=== PATIENT | female | born 1940 | race African-American/Black ===

== ENCOUNTER 2017-08-13 09:06 | Inpatient (IN) | payer OTHER, MEDICARE ==
[~2017-08-13] VITALS: Ht 167.6 cm; Wt 73.2 kg
[2017-08-13 09:25] VITALS: BP 120/87; PULSE 99; RESP 19; TEMP 98.3; O2SAT 96
[2017-08-13] MEDS ORDERED: ALPR.25 PO (11:22)
[2017-08-13] MEDS ORDERED: ATOR80TA45 PO (11:22)
[2017-08-13] MEDS ORDERED: OXYC1TAB36 PO (11:22)
[2017-08-13] MEDS ORDERED: LISI-519 PO (11:22)
[2017-08-13] MEDS ORDERED: REGL10TA5 PO (11:23)
[2017-08-13] MEDS ORDERED: NAPR500T2 PO (11:23)
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
[2017-08-13 12:14] LABS: AUTOMATED NEUTROPHIL # 5.7 TH/MM3 (1.8-7.7); BASOPHIL # 0.1 TH/MM3 (0-0.2); BASOPHIL % 0.9 % (0.0-2.0); EOSINOPHIL # 0.1 TH/MM3 (0-0.4); EOSINOPHIL % 0.9 % (0.0-4.0); HEMATOCRIT 41.1 % (35.0-46.0); HEMOGLOBIN 13.8 GM/DL (11.6-15.3); LYMPH % 32.6 % (9.0-44.0); LYMPHOCYTE # 3.1 TH/MM3 (1.0-4.8); MEAN CELL VOLUME 88.5 FL (80.0-100.0); MEAN CORPUSCULAR HEMOGLOBIN 29.7 PG (27.0-34.0); MEAN CORPUSCULAR HGB CONC 33.6 % (32.0-36.0); MEAN PLATELET VOLUME 7.8 FL (7.0-11.0); MONO % 6.5 % (0.0-8.0); MONOCYTE # 0.6 TH/MM3 (0-0.9); NEUT % 59.1 % (16.0-70.0); PLATELET COUNT 258 TH/MM3 (150-450); RED BLOOD COUNT 4.64 MIL/MM3 (4.00-5.30); RED CELL DISTRIBUTION WIDTH 16.8 % (11.6-17.2); WHITE BLOOD COUNT 9.6 TH/MM3 (4.0-11.0)
[2017-08-13 12:18] LABS: BILIRUBIN, URINE NEG (NEG); BLOOD, URINE NEG (NEG); GLUCOSE,URINE NEG (NEG); HYALINE CAST, URINE 1 /lpf (RARE); KETONE, URINE NEG (NEG); NITRITE,URINE NEG (NEG); SQUAMOUS EPITHELIAL CELL URINE 1 /hpf (0-5); URINE COLOR YELLOW (YELLW/STRAW); URINE LEUKOCYTE ESTERASE SMALL (NEG)
[2017-08-13 12:26] LABS: ALBUMIN 4.2 GM/DL (3.4-5.0); ALT (GPT) 20 U/L (10-53); AST (GOT) 22 U/L (15-37); BLOOD UREA NITROGEN 11 MG/DL (7-18); CALCIUM 9.3 MG/DL (8.5-10.1); CHLORIDE 103 MEQ/L (98-107); CREATININE 0.83 MG/DL (0.50-1.00); GLOMERULAR FILTRATION RATE 81 ML/MIN (>89); GLUCOSE,RANDOM 106 MG/DL (74-106); SODIUM (NA) 134 MEQ/L (136-145)
[2017-08-13 12:40] LABS: ALKALINE PHOSPHATASE 87 U/L (45-117); TOTAL BILIRUBIN ADULT 0.5 MG/DL (0.2-1.0); TOTAL PROTEIN 8.7 GM/DL (6.4-8.2)
[2017-08-13 13:27] VITALS: BP 149/70; PULSE 98; RESP 16; O2SAT 98
[2017-08-13] MEDS ORDERED: IBUPROFEN 800 MG TAB PO ONE (16:30)
[2017-08-13] MEDS ORDERED: AMBI5TAB PO (17:16)
[2017-08-13] MEDS ORDERED: TRAM50TA PO (17:16)
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
[2017-08-13] MEDS ORDERED: MAGNESIUM HYDROXIDE SUSP 30 ML CUP PO PRN (17:45)
[2017-08-13] MEDS ORDERED: ACETAMINOPHEN 325 MG TAB PO PRN (17:45)
[2017-08-13] MEDS ORDERED: ALUMINUM/MAGNESIUM/SIMETH 30 ML CUP PO PRN (17:45)
[2017-08-13 18:57] VITALS: BP 126/61; PULSE 95; RESP 18; TEMP 99; O2SAT 99
[2017-08-13] MEDS ORDERED: oxyCODONE/ACETAMINOPHEN 10 MG/325 MG TAB PO PRN (20:30)
[2017-08-13] MEDS: ATORVASTATIN 80 MG TAB PO SCH (20:38)
[2017-08-13] MEDS: NAPROXEN 500 MG TAB PO SCH (20:38)
[2017-08-14 06:00] VITALS: BP 120/54; PULSE 89; RESP 18; TEMP 98.8; O2SAT 100
[2017-08-14] MEDS: NAPROXEN 500 MG TAB PO SCH (09:16)
[2017-08-14] MEDS: LISINOPRIL 5 MG TAB PO SCH (09:17)
[2017-08-14 09:19] VITALS: BP 125/58; PULSE 92
[2017-08-14 11:49] LABS: BICARBONATE 25.7 MEQ/L (21.0-32.0); BLOOD UREA NITROGEN 11 MG/DL (7-18); CHLORIDE 102 MEQ/L (98-107); CREATININE 0.77 MG/DL (0.50-1.00); GLOMERULAR FILTRATION RATE 88 ML/MIN (>89); GLUCOSE,RANDOM 81 MG/DL (74-106); SODIUM (NA) 136 MEQ/L (136-145)
[2017-08-14 11:50] LABS: CHOLESTEROL 131 MG/DL (120-200)
[2017-08-14 12:16] LABS: CHOLESTEROL/ HDL RATIO 2.39 RATIO; HDL CHOLESTEROL 54.7 MG/DL (40.0-60.0); LDL CHOLESTEROL 61 MG/DL (0-99); TRIGLYCERIDES 75 MG/DL (42-150)
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
[2017-08-14] MEDS ORDERED: hydrOXYzine HCL 50 MG TAB PO PRN (14:45)
--- NOTE | 2017-08-14 14:54 | HHI.HP ---
Provisional Diagnosis Admission Date Aug 13, 2017 at 17:42 [place]. Brief psychotic disorder F 23 Certification of Person's Competence To Provide Express and Informed Consent I have personally examined Thelma Parks , a person being served at [facility] on, Aug 14, 2017 14:41. Express and informed consent means consent voluntarily given in writing, by a competent person, after sufficient explanation and disclosure of the subject matter involved to enable the person to make a knowing and willful decision without any element of force, fraud, deceit, duress, or other form of constraint or coercion. This person is 18 years of age or older, is not now known to be incompetent to consent to treatment with a guardian advocate, and does not have a health care surrogate or proxy currently making medical treatment decisions. I have found this person to be one of the following: [] Competent to provide express and informed consent, as defined above, for voluntary admission to this facility and is competent to provide express and informed consent for treatment. He/she has the consistent capacity to make well reasoned, willful, and knowing decisions concerning his or her medical or mental health treatment. The person fully and consistently understands the purpose of the admission for examination/placement and is fully capable of personally exercising all rights assured under [place] [] Incompetent to provide express and informed consent to voluntary admission, and this is incompetent to provide express and informed consent to treatment. The person must be transferred to involuntary status and a petition for a guardian advocate filed with the Circuit Court. [xxx] Refusing to provide express and informed consent to voluntary admission but is competent to provide express and informed consent for treatment. The person must be discharged or transferred to involuntary status. Form shall be completed within 24 hours of a person's arrival at the receiving facility and filed in the clinical record of each person: 1. Admitted on a voluntary basis 2. Permitted to provide express and informed consent to his/her own treatment 3. Allowed to transfer from involuntary to voluntary status 4. Prior to permitting a person to consent to his or her own treatment after having been previously found incompetent to consent to treatment. History of Present Illness Capacity: Lacks Capacity (patient less capacity sign for admission, patient has capacity to sign for medication) HPI Patient is a 70 sexual definite female initially comes here with her sister on a voluntary basis complaining of ringing in her ears, with increased delusions over the past 1-2 months of multiple people coming into her house through the wray into the crevices having some type of a silver Henrietta the abdomen they can be Julius they float away. But they began mumbling and talking at her threatening her frightening her. When she tried to take them out of the house they floated her bedroom. She describes these things too nightmares though she hasn't during the day also. Of interest patient stated she was on Cymbalta about a year ago and had similar "nightmares" will allow that medication. It appears patient has been prescribed opiates and benzodiazepines that her sister states she at times misuses. Patient has making some mild drug-seeking comments related to that. In any event she denies prior psychiatric contact hospitalizations a psychotropic medications. He does denies suicidality at the present time. She is of a history of using alcohol and marijuana in the past. She said she was born in [place] and raised in [place]. Delirious here now with her sister. Patient seen screened in the ED urine toxicology negative. Patient was seen with nurse novak. At this time I feel patient does not have capacity to make appropriate decisions concerning her hospitalization. Thus I will start petition for involuntary placement I will do first opinion petition supporting Levy act request second opinion. Peripheral chance sign for her medications. Will have hospitalist also consult with us. And because the seems to be a late onset with psychotic features I'll have neurology consult with us. Patient is well oriented 3 along with episodes of diffuse confusion Review of Systems ROS Limitations: Altered Mental Status Constitutional: DENIES: Diaphoretic episodes, Fatigue, Fever, Weight gain, Weight loss, Chills, Dizziness, Change in appetite, Night Sweats Endocrine: DENIES: Abnorml menstrual pattern, Heat/cold intolerance, Polydipsia , Polyuria, Polyphagia Eyes: DENIES: Blurred vision, Diplopia, Eye inflammation, Eye pain, Vision loss , Photosensitivity, Double Vision Ears, nose, mouth, throat: DENIES: Tinnitus, Hearing loss, Vertigo, Nasal discharge, Oral lesions, Throat pain, Hoarseness, Ear Pain, Running Nose, Epistaxis, Sinus Pain, Toothache, Odynophagia Respiratory: DENIES: Apneas, Cough, Snoring, Wheezing, Hemoptysis, Sputum production, Shortness of breath Cardiovascular: DENIES: Chest pain, Palpitations, Syncope, Dyspnea on Exertion , PND, Lower Extremity Edema, Orthopnea, Claudication Gastrointestinal: DENIES: Abdominal pain, Black stools, Bloody stools, Constipation, Diarrhea, Nausea, Vomiting, Difficulty Swallowing, Anorexia Genitourinary: DENIES: Abnormal vaginal bleeding, Dysmenorrhea, Dyspareunia, Sexual dysfunction, Urinary frequency, Urinary incontinence, Urgency, Hematuria , Dysuria, Nocturia, Vaginal discharge Musculoskeletal: COMPLAINS OF: Joint pain, Muscle aches, Back pain Integumentary: DENIES: Abnormal pigmentation, Pruritus, Rash, Nail changes, Breast masses, Breast skin changes, Nipple discharge Hematologic/lymphatic: DENIES: Bruising, Lymphadenopathy Immunologic/allergic: DENIES: Eczema, Urticaria Neurologic: COMPLAINS OF: Headache Psychiatric: COMPLAINS OF: Hallucinations, Delusions Past Psych History Psychological trauma history Patient denies Violence risk - others (6 mos) Low Violence risk - self (6 mos) Low to moderate Substance Abuse History Drugs/Alcohol past 12 months Patient denies any recently Past Family Social History Coded Allergies: cephalexin (Verified Allergy, Severe, DIARRHEA, 08/13/17) shellfish derived (Verified Allergy, Intermediate, Swelling, 08/13/17) "GLANDS GET SWOLLEN" aspirin (Verified Allergy, Unknown, 08/13/17) Reported Medications Zolpidem (Ambien) 5 Mg Tab, 5 MG PO HS Y for INSOMNIA, TAB 0 Refills 08/13/17 Tramadol (Tramadol) 50 Mg Tab, 50 MG PO Q4H Y for PAIN, TAB 0 Refills 08/13/17 Naproxen (Naproxen) 500 Mg Tab, 500 MG PO BID, #60 TAB 0 Refills 08/13/17 Metoclopramide (Reglan) 10 Mg Tab, 10 MG PO HS, #120 TAB 0 Refills 08/13/17 Alprazolam (Xanax) 0.25 Mg Tab, 0.25 MG PO Q6H Y for ANXIETY, TAB 0 Refills 08/13/17 Atorvastatin (Atorvastatin) 80 Mg Tab, 80 MG PO HS for Cholesterol Management, # 30 TAB 0 Refills 08/13/17 Lisinopril (Lisinopril) 5 Mg Tab, 5 MG PO DAILY for Blood Pressure Management, # 30 TAB 0 Refills 3/29/18 Discontinued Reported Medications Oxycodone-Acetaminophen (Oxycodone-Acetaminophen) 10-325 mg Tab, 1 TAB PO Q6H Y for PAIN, TAB 0 Refills 08/13/17 Current Medications Medications (Trade) Dose Ordered Sig/Felton Route Start Time Stop Time Status Last Admin (Tylenol) 650 mg Q4H PRN PO 08/13/17 17:45 (Milk Of Magnesia Liq) 30 ml DAILY PRN PO 08/13/17 17:45 (Mag-Al Plus Susp Liq) 30 ml Q6H PRN PO 08/13/17 17:45 (Lipitor) 80 mg HS PO 08/13/17 21:00 08/13/17 20:38 (Prinivil) 5 mg DAILY PO 08/14/17 09:00 08/14/17 09:17 (Naprosyn) 500 mg BID PO 08/13/17 21:00 08/14/17 09:16 (Percocet 10-325 Mg) 1 tab Q6H PRN PO 08/13/17 20:30 08/14/17 00:36 (Reglan) 10 mg HS PO 08/14/17 21:00 Family Psych History Unknown at this time Social History Patient lives with sister Patient's Strengths (min. 2) Patient verbal labile axis health care Physical Exam Patient medically cleared ED exam reviewed and agreed with. Patient sitting in a chair in day room, she is in no acute distress, she is in no respiratory distress, no complaints of abdominal pain. Patient moving all 4 extremities while using a walker vague complaints of diffuse uncomfortableness Vital Signs Vital Signs Date Time Temp Pulse Resp B/P (MAP) Pulse Ox O2 Delivery O2 Flow Rate FiO2 08/14/17 09:19 92 125/58 (80) 08/14/17 06:00 98.8 18 100 08/13/17 13:27 Room Air Lab Results Test 08/14/17 10:35 Blood Urea Nitrogen 11 MG/DL Creatinine 0.77 MG/DL Random Glucose 81 MG/DL Calcium Level 9.0 MG/DL Sodium Level 136 MEQ/L Potassium Level 3.7 MEQ/L Chloride Level 102 MEQ/L Carbon Dioxide Level 25.7 MEQ/L Anion Gap 8 MEQ/L Estimat Glomerular Filtration Rate 88 ML/MIN Triglycerides Level 75 MG/DL Cholesterol Level 131 MG/DL LDL Cholesterol 61 MG/DL HDL Cholesterol 54.7 MG/DL Cholesterol/HDL Ratio 2.39 RATIO Vitamin B12 Level GREATER THAN 2000 PG/ML 25-Hydroxy Vitamin D Total 26.4 ng/ML Mental Status Examination Appearance: Appropriate (Nicely dressed with appropriate hygiene and grooming.) Consciousness: Alert Orientation: Person, Place, Date/Time Motor Activity: Other (Uses a cane) Speech: Unremarkable, Hesitant Language: Adequate Fund of Knowledge: Adequate Attention and Concentration: Other (poor) Memory: Impaired Mood: Other (euthymic to somewhat irritable) Affect: Other (slight decreased range and intensity) Thought Process & Associations: Intact, Loose associations Thought Content: Bizarre thinking, Hallucinations (She sees multiple people coming in and out of her house.) Hallucination Type: Auditory (She hears different people talking at night.), Visual Delusion Type: Paranoid Suicidal Ideation: No Suicidal Plan: No Suicidal Intention: No Homicidal Ideation: No Homicidal Plan: No Homicidal Intention: No Insight: Poor Judgment: Poor Assessment & Plan Problem List: (1) BRIEF PSYCHOTIC DISORDER ICD Codes: F23 - BRIEF PSYCHOTIC DISORDER Assessment & Plan Estimated LOS: days patient paranoid psychotic and delusional, at this time feel she does not have capacity to sign for her admission on a voluntary basis does show do first opinion petition supporting Levy act. Request second opinion. I feel she can sign for medications. The hospitalist also consult will also have neurology also consult will Discharge Planning To be determined possibly back home with sister Request HC Surrog/Guard Advoc?: No Wero Simons MD Aug 14, 2017 14:54
[2017-08-14 16:00] VITALS: BP 122/63; PULSE 88; RESP 18; TEMP 98.5; O2SAT 100
[2017-08-14 16:06] LABS: HEMOGLOBIN A1C 5.7 % (4.3-6.0)
[2017-08-14] MEDS ORDERED: cloNIDine HCL 0.1 MG TAB PO PRN (16:45)
[2017-08-14] MEDS: traMADol HCL 50 MG TAB PO PRN (17:12)
[2017-08-14] MEDS: risperiDONE 0.5 MG TAB PO SCH (20:56)
[2017-08-14] MEDS ORDERED: METOCLOPRAMIDE HCL 10 MG TAB PO SCH (21:00)
[2017-08-14] MEDS: ATORVASTATIN 80 MG TAB PO SCH (21:02)
[2017-08-14] MEDS ORDERED: BACLOFEN 10 MG TAB PO SCH (22:00)
[2017-08-15 05:48] VITALS: BP 153/74; PULSE 95; RESP 16; TEMP 98.1; O2SAT 100
[2017-08-15] MEDS: LISINOPRIL 5 MG TAB PO SCH (08:39)
[2017-08-15] MEDS: traMADol HCL 50 MG TAB PO PRN ×2 (08:40→17:53)
[2017-08-15] MEDS: risperiDONE 0.5 MG TAB PO SCH ×2 (08:41→21:00)
--- NOTE | 2017-08-15 12:25 | HHI.PYPN ---
Subjective Remarks This is a request for second opinion. Patient was seen and case was discussed with nursing. Admission note was reviewed and I agree with the history. Patient remains confused and disorganized. She is not sure when she is dreaming or whether was happening is real. She admits to opiates and Xanax at home psychoeducation was done concerning those medications and altered mental status. Patient denies depressed mood. Denies suicidal or homicidal ideation. No delusions elicited. Patient is not discussing anything coming out of the wray. Mental Status Examination Appearance: Appropriate (Nicely dressed with appropriate hygiene and grooming.) Consciousness: Alert Orientation: Person, Place, Date/Time Motor Activity: Other (Uses a cane) Speech: Unremarkable, Hesitant Language: Adequate Fund of Knowledge: Adequate Attention and Concentration: Other (poor) Memory: Impaired Mood: Other (euthymic to somewhat irritable) Affect: Other (slight decreased range and intensity) Thought Process & Associations: Intact, Disorganized Thought Content: Bizarre thinking, Hallucinations (She sees multiple people coming in and out of her house.) Hallucination Type: Auditory (denies today) Delusion Type: Paranoid Suicidal Ideation: No Suicidal Plan: No Suicidal Intention: No Homicidal Ideation: No Homicidal Plan: No Homicidal Intention: No Insight: Poor Judgment: Poor Results Vitals/IOs Vital Signs Date Time Temp Pulse Resp B/P (MAP) Pulse Ox O2 Delivery O2 Flow Rate FiO2 08/15/17 05:48 98.1 95 16 153/74 (100) 100 08/13/17 13:27 Room Air Intake and Output 08/15/17 08/15/17 08/16/17 08:00 16:00 00:00 Intake Total 0 ml 120 ml Balance 0 ml 120 ml Assessment & Plan Problem List: (1) BRIEF PSYCHOTIC DISORDER ICD Codes: F23 - BRIEF PSYCHOTIC DISORDER Assessment & Plan I agree with first opinion to continue petition. Criteria include acute psychosis. We will order an MRI Justification for Cont. Inpt. Patient would decompensate in a less restrictive setting Request HC Surrog/Guard Advoc?: Rodrigo Hermosillo DO Aug 15, 2017 12:25
--- NOTE | 2017-08-15 14:43 | HHI.PR ---
Subjective Remarks Follow-up visit HTN, HLD, narcotic use. Patient seen and examined today. States she is very sleepy and has been sleeping all day. Patient reports she is feeling withdrawal symptoms from not having her regular Percocets. Reports headaches, dizziness, increased anxiety, nausea, diarrhea. Denies chest pain, palpitations, fevers, chills, shortness of breath or dyspnea, vomiting. Objective Vitals Vital Signs Date Time Temp Pulse Resp B/P (MAP) Pulse Ox O2 Delivery O2 Flow Rate FiO2 08/15/17 05:48 98.1 95 16 153/74 (100) 100 08/14/17 16:00 98.5 88 18 122/63 (82) 100 I/O 08/14/17 08/14/17 08/14/17 08/15/17 08/15/17 08/15/17 07:00 15:00 23:00 07:00 15:00 23:00 Intake Total 480 ml 0 ml 360 ml Balance 480 ml 0 ml 360 ml Intake Oral 480 ml 0 ml 360 ml # Voids 1 Result Diagram: 08/13/17 1134 08/14/17 1035 Objective Remarks GENERAL: This is a well-nourished, well-developed patient, in no apparent distress. SKIN: Warm and dry. HEENT: Normocephalic. Pupils equal round and reactive. Nose without bleeding. Airway patent. NECK: Trachea midline. No JVD. Supple. CARDIOVASCULAR: Regular rate and rhythm without murmurs, gallops, or rubs. RESPIRATORY: Clear to auscultation. Breath sounds equal bilaterally. No wheezes , rales, or rhonchi. GASTROINTESTINAL: Abdomen soft, non-tender, nondistended. Bowel Sounds normoactive x4. MUSCULOSKELETAL: Extremities without clubbing, cyanosis, or edema. NEUROLOGICAL: Awake and alert. Oriented to month, place, person. Moves all extremities. Normal speech. A/P Problem List: (1) Encephalopathy ICD Code: G93.40 - Encephalopathy, unspecified Assessment and Plan Patient is a 76-year-old -[place] female with primary medical history of hypertension, hyperlipidemia, anxiety cervical and breast cancer, chronic pain who came into the hospital brought in by sister for bizarre behavior including hallucinations. She is now admitted to inpatient psychiatry unit for further evaluation consulted for chronic pain history. Confusion Hallucinations -Managed by psychiatry team -Brain MRI ordered by primary team Encephalopathy, toxic vs metabolic Chronic Narcotics and benzodiazepine use -Confusion may be drug-induced patient has been on opioid narcotics. As per nursing report she was given Percocet last night, and have more confusion -Hold off on giving opioid narcotics including benzodiazepines. -May use clonidine patch for possible withdrawal Chronic Pain, chronic narcotic use Fibromyalgia Stenosis lumbar and cervical Narcotic use, withdrawal -On tramadol as needed baclofen as needed -May also start NSAID use -Avoid withdrawals from narcotic use will start clonidine patch HTN HLD -Continue home medication atorvastatin 80 mg, lisinopril 5 mg daily -Monitor BP trend DVT prop ambulatory Discussed patient, nurse Mishel Carbone Aug 15, 2017 14:43
[2017-08-15] MEDS ORDERED: cloNIDine HCL 0.1 MG/24 HR PATCH T-DERMAL SCH (15:00)
--- NOTE | 2017-08-15 15:50 | RADRPT ---
EXAM DATE/TIME: 08/15/2017 14:39 [facility] COMPARISON: No previous studies available for comparison. INDICATIONS : Confusion. Cephalgia. MEDICAL HISTORY : Carcinoma, breast. SURGICAL HISTORY : Hysterectomy. ENCOUNTER: Initial ACUITY: 1 day PAIN SCORE: 4/10 LOCATION: cranial TECHNIQUE: Multiplanar, multisequence MRI of the brain was performed without contrast. FINDINGS: CEREBRUM: The ventricles are normal for age. No evidence of midline shift, mass lesion, hemorrhage or acute in farction. No extraaxial fluid collections are seen. The pituitary gland and suprasellar cistern are normal in configuration. WHITE MATTER: No significant signal abnormalities are seen in the white matter. POSTERIOR FOSSA: The cerebellum and brainstem are intact. The 4th ventricle is midline. The cerebellopontine angle is unremarkable. The cerebellar tonsils are normal in position. DIFFUSION IMAGING: No focal areas of restricted diffusion are seen. No evidence of acute infarction. EXTRACRANIAL: The visualized portions of the orbits and paranasal sinuses are unremarkable. CONCLUSION: Normal examination for a patient of this age. Giovanni Don MD on August 15, 2017 at 15:44 Board Certified Radiologist. This report was verified electronically.
[2017-08-15 17:29] VITALS: BP 136/63; PULSE 75; RESP 16; TEMP 98.5; O2SAT 98
[2017-08-15] MEDS: BACLOFEN 10 MG TAB PO PRN (17:53)
[2017-08-15] MEDS: ATORVASTATIN 80 MG TAB PO SCH (20:55)
[2017-08-16] MEDS: BACLOFEN 10 MG TAB PO PRN ×3 (02:55→19:40)
[2017-08-16] MEDS: traMADol HCL 50 MG TAB PO PRN ×3 (02:56→19:39)
[2017-08-16 05:39] VITALS: BP 127/58; PULSE 84; RESP 16; TEMP 98.3; O2SAT 100
[2017-08-16] MEDS: LISINOPRIL 5 MG TAB PO SCH (08:31)
[2017-08-16] MEDS: risperiDONE 0.5 MG TAB PO SCH ×2 (08:32→08:39)
--- NOTE | 2017-08-16 12:34 | HHI.PYPN ---
Subjective Remarks Patient was seen and case discussed with nursing. Patient has gained better insight into her symptoms and says that before admission she did have visual hallucinations of people in her house and animals. She denies having these here in the hospital. We discussed how this could be due to delirium secondary to her benzodiazepines and opiates. Is nice and pleasant on the unit. Meeting with family elated today. Chief complaint today is poor sleep and she gives consent for trazodone Mental Status Examination Appearance: Appropriate (Nicely dressed with appropriate hygiene and grooming.) Consciousness: Alert Orientation: Person, Place, Date/Time Motor Activity: Other (Uses a cane) Speech: Unremarkable, Hesitant Language: Adequate Fund of Knowledge: Adequate Attention and Concentration: Other (poor) Memory: Impaired Mood: Other (euthymic to somewhat irritable) Affect: Other (slight decreased range and intensity) Thought Process & Associations: Intact, Disorganized Thought Content: Bizarre thinking, Hallucinations (She sees multiple people coming in and out of her house.) Hallucination Type: Auditory (denies today) Delusion Type: Paranoid Suicidal Ideation: No Suicidal Plan: No Suicidal Intention: No Homicidal Ideation: No Homicidal Plan: No Homicidal Intention: No Insight: Poor Judgment: Poor Results Vitals/IOs Vital Signs Date Time Temp Pulse Resp B/P (MAP) Pulse Ox O2 Delivery O2 Flow Rate FiO2 08/16/17 06:40 18 08/16/17 05:39 98.3 84 127/58 (81) 100 08/13/17 13:27 Room Air Intake and Output 08/16/17 08/16/17 08/17/17 08:00 16:00 00:00 Intake Total 0 ml Balance 0 ml Assessment & Plan Problem List: (1) BRIEF PSYCHOTIC DISORDER ICD Codes: F23 - BRIEF PSYCHOTIC DISORDER Assessment & Plan Trazodone 50 mg by mouth daily at bedtime Justification for Cont. Inpt. Patient will decompensate in a less restrictive setting Request HC Surrog/Guard Advoc?: No Rodrigo Abdi DO Aug 16, 2017 12:34
[2017-08-16] MEDS ORDERED: PILL SPLITTER OTHER PRN (14:30)
--- NOTE | 2017-08-16 14:30 | HHI.PR ---
Subjective Remarks Follow-up visit HTN, HLD, narcotic use. Patient seen and examined today. States she is doing okay but she does not know what is going to happen to her. Patient states I think I am going to be coping when I get out of here. Denies pain and discomfort. Denies SOB/ dyspnea. Denies chest pain, palpitations, headaches, dizziness. Denies fevers, chills, n/v/d. Denies dysuria. Objective Vitals Vital Signs Date Time Temp Pulse Resp B/P (MAP) Pulse Ox O2 Delivery O2 Flow Rate FiO2 08/16/17 06:40 18 08/16/17 05:39 98.3 84 16 127/58 (81) 100 08/15/17 17:29 98.5 75 16 136/63 (87) 98 I/O 08/15/17 08/15/17 08/15/17 08/16/17 08/16/17 08/16/17 07:00 15:00 23:00 07:00 15:00 23:00 Intake Total 0 ml 840 ml 0 ml Balance 0 ml 840 ml 0 ml Intake Oral 0 ml 840 ml 0 ml # Voids 1 3 2 Result Diagram: 08/13/17 1134 08/14/17 1035 Objective Remarks GENERAL: This is a well-nourished, well-developed patient, in no apparent distress. SKIN: Warm and dry. HEENT: Normocephalic. Pupils equal round and reactive. Nose without bleeding. Airway patent. NECK: Trachea midline. No JVD. Supple. CARDIOVASCULAR: Regular rate and rhythm without murmurs, gallops, or rubs. RESPIRATORY: Clear to auscultation. Breath sounds equal bilaterally. No wheezes , rales, or rhonchi. GASTROINTESTINAL: Abdomen soft, non-tender, nondistended. Bowel Sounds normoactive x4. MUSCULOSKELETAL: Extremities without clubbing, cyanosis, or edema. NEUROLOGICAL: Awake and alert. Oriented to month, place, person. Periods of confusion. Moves all extremities. Normal speech. A/P Problem List: (1) Encephalopathy ICD Code: G93.40 - Encephalopathy, unspecified Assessment and Plan Patient is a 76-year-old -[place] female with primary medical history of hypertension, hyperlipidemia, anxiety cervical and breast cancer, chronic pain who came into the hospital brought in by sister for bizarre behavior including hallucinations. She is now admitted to inpatient psychiatry unit for further evaluation consulted for chronic pain history. Confusion Hallucinations -Managed by psychiatry team -Brain MRI ordered by primary team Encephalopathy, toxic vs metabolic Chronic Narcotics and benzodiazepine use -Confusion may be drug-induced patient has been on opioid narcotics. As per nursing report she was given Percocet and have more confusion -Hold off on giving opioid narcotics including benzodiazepines. -Clonidine patch for possible withdrawal Chronic Pain, chronic narcotic use Fibromyalgia Stenosis lumbar and cervical Narcotic use, withdrawal -On tramadol as needed baclofen as needed -May also start NSAID use -Avoid withdrawals from narcotic use will start clonidine patch HTN HLD -Continue home medication atorvastatin 80 mg, lisinopril 5 mg daily -Monitor BP trend -Improving DVT prop ambulatory Stable from Hospitalist standpoint. We will sign off. Reconsult as needed. Discussed patient, nurse Mishel Carbone Aug 16, 2017 14:29
[2017-08-16 18:44] VITALS: BP 112/56; PULSE 80; RESP 16; TEMP 98.1; O2SAT 100
--- NOTE | 2017-08-16 19:10 | MB ---
cc: Agustin More MD, PhD DATE: 08/16/2017 REASON FOR CONSULTATION: Hallucinations. HISTORY OF PRESENT ILLNESS: The patient is a very pleasant 76-year-old female who began having delusions and hallucinations about a week or 2 ago, she states. She thought people were coming into her house through the wray, etc. She states that she was using Percocet routinely and Xanax. She was taking Percocet for low back pain and stopped this, feels that the hallucinations came on following cessation of the Percocet. She feels they are improving. There is no prior psychiatric history. She denies headaches. CURRENT MEDICATIONS: Remeron 7.5 mg daily, clonidine patch, baclofen 10 mg as needed for spasms, risperidone 0.5 mg b.i.d., clonidine p.r.n., Atarax 50 mg p.r.n. anxiety, tramadol p.r.n., lisinopril 5 mg daily, Lipitor 80 mg daily, Tylenol p.r.n. NEUROLOGIC EXAMINATION: VITAL SIGNS: Her blood pressure is 112/56, pulse is 80, respiratory rate is 16, temperature 98 degrees. HIGHER CORTICAL FUNCTION: Alert, oriented x 3. Recalls 2/3 objects in 3 minutes. Remote memory is normal. Calculation is normal. Naming ability is within normal limits. Cranial nerves 2-12 are normal. MOTOR: 5/5 strength of all groups of both upper and lower extremities. There is no drift. Romberg is grossly within normal limits. Reflexes are symmetric. DIAGNOSTIC DATA: MRI of the brain is within normal limits. LABORATORY DATA: White count 9600, hemoglobin 13.8, hematocrit 41%, platelet count 258,000. Sodium is 134, potassium is 4, chloride 103, CO2 is 22, BUN is 11, creatinine 0.83, GFR is 81, glucose 106, AST 22, ALT is 20. B12 greater than 2000. Tox screen negative. Urinalysis: The pH is 5, specific gravity 1.012. IMPRESSION: Probable encephalopathy, possibly related to withdrawal from pain medications. Recommend further evaluation with additional labs including sed rate, ANDRES, urine porphyrin screen, rule out porphyria. Also obtain EEG. Agustin More MD, PhD PR[facility]/SB , 06:54 PM , 07:09 PM
[2017-08-16] MEDS ORDERED: MIRTAZAPINE 15 MG TAB PO SCH (21:00)
[2017-08-16] MEDS ORDERED: traZODone HCL 50 MG TAB PO SCH (21:00)
[2017-08-16] MEDS: ATORVASTATIN 80 MG TAB PO SCH (21:07)
[2017-08-16 23:21] VITALS: RESP 16
[2017-08-17] MEDS: risperiDONE 0.5 MG TAB PO SCH (09:00)
[2017-08-17] MEDS: LISINOPRIL 5 MG TAB PO SCH (09:00)
[2017-08-17] MEDS: traMADol HCL 50 MG TAB PO PRN (09:04)
[2017-08-17] MEDS: BACLOFEN 10 MG TAB PO PRN (09:04)
[2017-08-17] MEDS ORDERED: ATOR80TA45 PO (12:56)
[2017-08-17] MEDS ORDERED: RISP0.5T25 PO (12:56)
[2017-08-17] MEDS ORDERED: CLON.1T T-DERMAL (12:56)
[2017-08-17] MEDS ORDERED: LISI-519 PO (12:56)
[2017-08-17] MEDS ORDERED: BACL10TA PO (12:56)
[2017-08-17] MEDS ORDERED: TRAM50TA PO (12:56)
[2017-08-17] MEDS ORDERED: MIRTA15 PO (12:56)
--- NOTE | 2017-08-17 13:02 | HHI.DS ---
Psychiatry Discharge Summary Inpatient Psychiatric care?: Yes Advance Directive: No Reason Not Provided: Due to Patient Condition Mental Health AdvanceDirective: No Health Care Proxy: No Admission Admission Date Aug 13, 2017 at 17:42 Admission Diagnosis: (1) BRIEF PSYCHOTIC DISORDER ICD Code: F23 - BRIEF PSYCHOTIC DISORDER Brief History Patient is a 70 sexual definite female initially comes here with her sister on a voluntary basis complaining of ringing in her ears, with increased delusions over the past 1-2 months of multiple people coming into her house through the wray into the crevices having some type of a silver [place] the abdomen they can be Julius they float away. But they began mumbling and talking at her threatening her frightening her. When she tried to take them out of the house they floated her bedroom. She describes these things too nightmares though she hasn't during the day also. Of interest patient stated she was on Cymbalta about a year ago and had similar "nightmares" will allow that medication. It appears patient has been prescribed opiates and benzodiazepines that her sister states she at times misuses. Patient has making some mild drug-seeking comments related to that. In any event she denies prior psychiatric contact hospitalizations a psychotropic medications. He does denies suicidality at the present time. She is of a history of using alcohol and marijuana in the past. She said she was born in [place] and raised in [place]. Delirious here now with her sister. Patient seen screened in the ED urine toxicology negative. Patient was seen with nurse novak. At this time I feel patient does not have capacity to make appropriate decisions concerning her hospitalization. Thus I will start petition for involuntary placement I will do first opinion petition supporting Levy act request second opinion. Shailesh servin sign for her medications. Will have hospitalist also consult with us. And because the seems to be a late onset with psychotic features I'll have neurology consult with us. Patient is well oriented 3 along with episodes of diffuse confusion Tobacco Use In Past 30 Days: 5 or More Cigarettes/Day Alcohol Use: Never Hospital Course Patient's hospital course was uneventful, she showed no behavioral problems, was active in the environment and on the unit. She is been compliant with her medications. She now states that the thought she had about people coming into her house was her "imagination" she showing some good reality testing she denies suicidality homicidality voices or visions. She wishes to go to her home today. At this time patient no longer meets Levy act criteria will allow the patient was discharged herself with Rx 1 month follow-up [facility] Results Blood Pressure 112 / 56 Vital Signs Date Time Temp Pulse Resp B/P (MAP) Pulse Ox O2 Delivery O2 Flow Rate FiO2 08/16/17 23:21 16 08/16/17 18:44 98.1 80 112/56 (74) 100 08/13/17 13:27 Room Air Laboratory Tests Test 08/16/17 21:17 08/17/17 08:35 Laboratory Results Test 08/14/17 10:35 Cholesterol Level 131 MG/DL (120-200) HDL Cholesterol 54.7 MG/DL (40.0-60.0) Hemoglobin A1c 5.7 % (4.3-6.0) LDL Cholesterol 61 MG/DL (0-99) Triglycerides Level 75 MG/DL (42-150) Summary of Procedures None done Imaging Last Impressions Brain MRI 08/15/17 0000 Signed Impressions: Service Date/Time: Tuesday, August 15, 2017 14:39 - CONCLUSION: Normal examination for a patient of this age. Giovanni Don MD Pending results at discharge: No Medications # of Antipsychotic meds at D/C: 1 Approp Antipsych med options 1 - Minimum of three failed multiple trials of monotherapy. 2 - Documented plan to taper to monotherapy due to previous use of multiple meds OR cross-taper in progress at D/C. 3 - Documentation of augmentation of Clozapine. 4 - Justification other than those listed in allowable values 1-3, document here : Discharge Discharge Date: Aug 17, 2017 Discharge Diagnosis: (1) BRIEF PSYCHOTIC DISORDER Diagnosis: Principal ICD Code: F23 - BRIEF PSYCHOTIC DISORDER Pt Condition on Discharge: Stable Discharge Disposition: Discharge Home Discharge Instructions Diet Instructions: As Tolerated, No Restrictions Activities you can perform: Regular-No Restrictions Scheduled Appointment: [facility] Discharge Time > 30 minutes Mental Status Examination Appearance: Appropriate (Nicely dressed with appropriate hygiene and grooming.) Consciousness: Alert Orientation: Person, Place, Date/Time Motor Activity: Other (Uses a cane) Speech: Unremarkable, Hesitant Language: Adequate Fund of Knowledge: Adequate Attention and Concentration: Other (poor) Memory: Impaired Mood: Other (euthymic to somewhat irritable) Affect: Other (slight decreased range and intensity) Thought Process & Associations: Intact, Disorganized Thought Content: Bizarre thinking, Hallucinations (She sees multiple people coming in and out of her house.) Hallucination Type: Auditory (denies today) Delusion Type: Paranoid Suicidal Ideation: No Suicidal Plan: No Suicidal Intention: No Homicidal Ideation: No Homicidal Plan: No Homicidal Intention: No Insight: Poor Judgment: Poor Discharge/Advance Care Plan Health Problems: (1) BRIEF PSYCHOTIC DISORDER Goals to promote your health * To prevent worsening of your condition and complications * To maintain your health at the optimal level Directions to meet your goals Take your medications as prescribed Follow your dietary instruction Follow activity as directed Keep your appointments as scheduled Take your immunizations and boosters as scheduled If your symptoms worsen call your PCP, if no PCP go to Urgent Care Center or Emergency Room For 08/12 questions related to your inpatient stay or results of tests pending at discharge, please contact Dr. Wero Simons at Smoking is Dangerous to Your Health. Avoid second hand smoking Wero Simons MD Aug 17, 2017 13:02
[2017-08-22] MEDS ORDERED: REMOVE OLD CATAPRES (CLONIDINE) PATCH T-DERMAL SCH (15:00)
== END 2017-08-17 13:50 | disposition home or self-care (01) | DRG 885 ==
LOC: NEPD 09:06 → NEDA 17:42 → H260 18:38
PROVIDERS: ADMIT Psychiatry & Neurology Psychiatry; ATTEND Psychiatry & Neurology Psychiatry
DX: F23 Brief psychotic disorder (principal); I10 Essential (primary) hypertension; F41.9 Anxiety disorder, unspecified; G47.00 Insomnia, unspecified; E78.5 Hyperlipidemia, unspecified; G89.29 Other chronic pain; M54.5 Low back pain; M79.7 Fibromyalgia; M48.061 Spinal stenosis, lumbar region without neurogenic claudication; Z79.891 Long term (current) use of opiate analgesic
CPT/HCPCS: 70551; 80048; 80053; 80061; 80307; 81001; 82306; 82607; 83036; 84443; 85025; 85652; 86038; 99285